=== PATIENT | female | born 1945 | race Caucasian/White ===

== ENCOUNTER 2017-03-07 12:41 | Emergency (ER) | payer OTHER ==
[~2017-03-07] VITALS: Ht 157.5 cm; Wt 62.5 kg
[~2017-03-07 12:41] MED LIST: AMITRIPTYLINE100 MG PO; ATORVASTATIN CA40 MG PO; BACTRIM,SEPT1 TABLET PO; Cozaar PO; DULOXETINE HCL30 MG PO; ELAVIL25 MG PO; ERGOCALCIF50000 UNIT PO; GLUCOVANCE 2.51 EAC1 PO; GLUCOVANCE 51 TABLET PO; GLYBURIDE-METF1 EAC3 PO; HUMULIN N100 UNIT/1 SQ; HYZAAR 100-251 EACH PO; LANTUS (UNITS)1 UNIT SC; LANTUS 3 M100 UNITS/ SC; LANTUS 3 M100 UNITS1 SC; LEVOTHYROXINE50 MCG PO; LOSARTAN-HCTZ1 EACH PO; LOW-DOSE ASPIRI81 MG PO; Levothroid,Synthroid PO; METFORMIN HCL1000 MG PO; MOTRIN800 MG PO; NOVOLOG MI100 UNIT/M SC; NOVOLOG PE100 UNITS/ SC; SIMCOR 500/21 TABLET PO; TOUJEO SOL300 UNIT/1 SC; TRILIPIX135 MG PO; TRILIPIX45 MG PO; VICTOZA 2-0.6 MG/0.1 SC; ZETIA10 MG PO
[2017-03-07] MEDS ORDERED: NORCO 5/3251 TABLET PO (14:29)
[2017-03-07 14:44] VITALS: BP 138/70
== END 2017-03-07 14:45 | disposition home or self-care (01) ==
LOC: EME 12:41
DX: S20.211A Contusion of right front wall of thorax, initial encounter (principal); W01.198A Fall on same level from slipping, tripping and stumbling with subsequent striking against other object, initial encounter; Y92.002 Bathroom of unspecified non-institutional (private) residence as the place of occurrence of the external cause; I10 Essential (primary) hypertension; E11.40 Type 2 diabetes mellitus with diabetic neuropathy, unspecified; E78.5 Hyperlipidemia, unspecified; E03.9 Hypothyroidism, unspecified; Z79.4 Long term (current) use of insulin
CPT/HCPCS: 71020; 99281; 99284

== ENCOUNTER 2017-07-10 06:55 | Emergency (ER) | payer OTHER ==
[~2017-07-10] VITALS: Ht 157.5 cm; Wt 59.3 kg
[~2017-07-10 06:55] MED LIST changes: +NORCO 5/3251 TABLET PO
[2017-07-10 07:37] LABS: HEMATOCRIT 33.2 % (36.0-46.0); HEMOGLOBIN 11.4 G/DL (11.9-15.5); MCHC 34.3 G/DL (30.0-36.0); MCV 87.4 FL (83-99); PLATELET COUNT 127 K/uL (156-360); RBC DIS.WIDTH-CV 13.1 % (11.8-14.6); RBC DIS.WIDTH-SD 41.2 % (39-53); WHITE BLOOD COUNT 4.7 K/uL (4.1-10.2)
[2017-07-10 07:52] LABS: CHLORIDE 105 mEq/L (99-109); POTASSIUM 3.5 mEq/L (3.7-5.4); SODIUM 139 mEq/L (136-147)
[2017-07-10 07:54] LABS: GLUCOSE 157 mg/dL (70-99)
[2017-07-10 07:58] LABS: CREATININE 0.9 mg/dL (0.6-1.3); GFR ESTIMATE (CALCULATED) > 59 mL/min/
[2017-07-10 07:59] LABS: UREA NITROGEN (BUN) 15 mg/dL (9-23)
[2017-07-10 08:00] LABS: TROP-I INTERPRETATION NEGATIVE; TROPONIN-I < 0.01 ng/mL (0.0-0.30)
[2017-07-10 09:09] VITALS: BP 156/83
== END 2017-07-10 09:11 | disposition home or self-care (01) ==
LOC: EME 06:55
PROVIDERS: Nurse Practitioner Family
PROC: 0HQ0XZZ Repair Scalp Skin, External Approach (ICD-10-PCS; principal; 2017-07-10)
DX: S01.01XA Laceration without foreign body of scalp, initial encounter (principal); W01.10XA Fall on same level from slipping, tripping and stumbling with subsequent striking against unspecified object, initial encounter; I10 Essential (primary) hypertension; E78.5 Hyperlipidemia, unspecified; E03.9 Hypothyroidism, unspecified; E11.9 Type 2 diabetes mellitus without complications; Z79.4 Long term (current) use of insulin
CPT/HCPCS: 70450; 80048; 84484; 85027; 93005; 99281; 99284